=== PATIENT | male | born 1995 | race Caucasian/White ===

== ENCOUNTER 2017-08-14 10:32 | Emergency (ER) | payer MEDICAID ==
[~2017-08-14] VITALS: Ht 175.3 cm; Wt 70.3 kg
[2017-08-14 11:29] LABS: HEMATOCRIT 47.4 % (42.0-52.0); HEMOGLOBIN 16.6 gm/dL (14.0-18.0); MCH 30.1 pg (26.0-34.0); MCV 85.9 fL (80.0-100.0); MPV 8.5 fl. (7.2-11.1); NUCLEATED RBCS 0 /100WBC; PLATELET COUNT* 179 thou/uL (150-400); RBC 5.52 mil/uL (4.50-6.00); RDW-CV 13.7 % (10.5-14.5)
[2017-08-14 12:18] LABS: CALCIUM 8.9 mg/dL (8.5-10.1)
[2017-08-14 12:21] LABS: URINE BILIRUBIN NEGATIVE (Negative); URINE BLOOD NEGATIVE (Negative); URINE CLARITY CLEAR; URINE COLOR YELLOW; URINE GLUCOSE-RANDOM NEGATIVE (Negative); URINE KETONES NEGATIVE (Negative); URINE LEUKOCYTES-REFLEX NEGATIVE (Negative); URINE NITRITE-REFLEX NEGATIVE (Negative); URINE PROTEIN TRACE (Negative)
[2017-08-14 12:22] LABS: ALBUMIN 3.9 g/dL (3.4-5.0); TOTAL BILIRUBIN 1.6 mg/dL (<0.1-1.0); TOTAL PROTEIN 7.5 g/dL (6.4-8.2)
[2017-08-14] MEDS ORDERED: ZOFRAN ODT4 MG PO (12:32)
[2017-08-14 12:40] VITALS: BP 124/51
[2017-08-14 12:50] LABS: ABSOLUTE LYMPHOCYTES 0.6 thou/uL (0.8-5.3); ABSOLUTE MONOCYTES 0.8 thou/uL (0.0-1.2); ABSOLUTE NEUTROPHILS 9.7 thou/uL (1.6-8.1); ATYPICAL LYMPHS 1 %; PLATELET ESTIMATE ADEQUATE
== END 2017-08-14 12:49 | disposition home or self-care (01) ==
LOC: M.ERS 10:32
PROVIDERS: Physician Assistant
DX: R11.2 Nausea with vomiting, unspecified (principal)